=== PATIENT | female | born 1955 ===

== ENCOUNTER 2020-12-06 13:01 | Outpatient (CLI) | payer OTHER ==
--- NOTE | 2020-12-06 14:00 | XRay Report ---
XR chest routine 2V INDICATION / CLINICAL INFORMATION: COUGH. COMPARISON: None available. FINDINGS: SUPPORT DEVICES: Right chest wall port catheter tip terminates over the cavoatrial junction. HEART /PULMONARY VASCULATURE: No significant abnormality. LUNGS / PLEURA: No significant pulmonary or pleural abnormality. No pneumothorax. ADDITIONAL FINDINGS: No significant additional findings. IMPRESSION: 1. No acute findings. Signer Name: Shivam Bolanos MD Signed: 12/06/2020 1:55 PM Workstation Name: [id number][id number]
== END 2020-12-06 13:02 | disposition home or self-care (01) ==
LOC: SPVIMAG 13:01
PROVIDERS: ATTEND Internal Medicine Hematology & Oncology
DX: R05 Cough (principal); C16.9 Malignant neoplasm of stomach, unspecified; D64.9 Anemia, unspecified; R68.89 Other general symptoms and signs; D50.0 Iron deficiency anemia secondary to blood loss (chronic); R45.89 Other symptoms and signs involving emotional state
CPT/HCPCS: 71046